=== PATIENT | female | born 1960 | race Caucasian/White ===

== ENCOUNTER 2018-09-10 14:41 | Emergency (ER) | payer MEDICAID ==
[~2018-09-10] VITALS: Ht 154.9 cm; Wt 96.2 kg
[2018-09-10 15:46] VITALS: BP 128/77
== END 2018-09-10 17:29 | disposition home or self-care (01) ==
LOC: ER 14:47
DX: R51 Headache (principal); F17.210 Nicotine dependence, cigarettes, uncomplicated
CPT/HCPCS: 70450